=== PATIENT | female | born 1985 | race Two or more races ===

== ENCOUNTER → 2017-01-26 13:34 | Outpatient (CLI) | payer MEDICAID | END | disposition home or self-care (01) | LOC: D.CT 13:30 | DX: R16.0 Hepatomegaly, not elsewhere classified (principal) ==

== ENCOUNTER → 2017-05-19 10:38 | Outpatient (CLI) | payer MEDICAID | END | disposition home or self-care (01) | LOC: D.MRI 05-14 08:30 | DX: R16.0 Hepatomegaly, not elsewhere classified (principal) ==

== ENCOUNTER → 2018-04-30 10:04 | Outpatient (CLI) | payer OTHER | END | disposition home or self-care (01) | LOC: D.MRI 10:00 | DX: K76.9 Liver disease, unspecified (principal) ==

== ENCOUNTER 2019-03-31 06:42 | Day surgery (SDC) | payer MEDICAID ==
[~2019-03-31] VITALS: Ht 162.6 cm; Wt 72.6 kg
[2019-03-31 07:17] LABS: HCG URINE NEGATIVE (NEGATIVE)
[2019-03-31 07:19] LABS: HEMATOCRIT 40.3 % (36.0-48.0); HEMOGLOBIN 13.2 g/dL (12-16); MCH 28.8 pg (26.0-34.0); MCHC 32.8 g/dL (31.0-37.0); MEAN PLATELET VOLUME 10.4 fL (7.4-10.4); RBC 4.58 10x6/uL (4.00-5.40); RDW 12.7 % (11.5-14.5); WBC 6.2 10x3/uL (4.8-10.8)
[2019-03-31 07:28] VITALS: BP 113/43; Ht 162.6 cm; Wt 72.6 kg
--- NOTE | 2019-03-31 10:46 | NUR ---
1040-DISCHARGE CRITERIA MET.AMBULATED TO RESTROOM AND URINATED WITHOUT COMPLICATIONS. REMOVED IV FROM LEFT ARM WITH CATH INTACT,DISPOSED INTO SHARPS,COVERED SITE WITH BANDAID. REVIEWED POST OPERATIVE INSTRUCTIONS WITH PT.VERBALIZED UNDERSTANDING. AWAITING ON FATHER TO PICK HER UP
--- NOTE | 2019-03-31 11:00 | NUR ---
1100-ESCORTED OUT VIA W/C WITH FATHER AWAITING TO DRIVE HOME.STABLE CONDITON WITHOUT QUESTIONS OR CONCERNS
--- NOTE | 2019-03-31 11:02 | OP ---
PATIENT NAME: TIFFANY MORSE MEDICAL RECORD: [id number] :81 LOCATION:D.OPS ADMISSION DATE: SURGEON: TONG YOUNG MD DATE OF OPERATION: 03/31/2019 SURGEON: Tong Young MD ANESTHESIA: TIVA by Miky Thakkar CRNA DIAGNOSIS: Interstitial cystitis. PROCEDURES: Cystoscopy, hydrodistention of bladder, intravesical Rimso instillation. FINDINGS: Inflamed bladder with no bladder tumors. Single ureteral orifices bilaterally. BLOOD LOSS: None. CLINICAL HISTORY: This is a 33-year-old female, G3, P3, A0, who was originally from [facility]. She has a chief complaint of urinary frequency, nocturia times 2-3 and urinary tract infection type symptoms. This includes urgency, suprapubic pain and dyspareunia. She has interstitial cystitis type symptoms. We are performing cystoscopy today. If bladder inflammation is seen, then we will proceed to treatment with hydrodistention and intravesical Rimso. She is not allergic to any medications. 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 DESCRIPTION OF PROCEDURE: The patient was given IV sedation. She was then placed into lithotomy position and prepped and draped. The 21-[place] cystoscope was introduced. Bladder findings as outlined above. I distended the bladder to at least 600 mL for 1-2 minutes. The bladder was then emptied. The scope was removed. A red rubber catheter was introduced into the bladder and through the lumen of the catheter, 50 mL of intravesical Rimso solution was instilled into the bladder. Once the solution was in the bladder, the catheter was removed. The patient will hold the solution in for 15 minutes and then void it out. I will see her in followup in 2 weeks' time. TRANSINT:[id number] Voice Confirmation ID: [id number] DOCUMENT ID: [id number] TONG YOUNG MD at 1102 CC: [id number] DICTATION DATE: 03/31/19 1002 ELECTROPLATING WORKER: 03/31/19 1012 [facility] 03/31/19 [facility] [address] [place] [address]
== END 2019-03-31 11:00 | disposition home or self-care (01) ==
LOC: D.OPS 06:42 → D.PAN 09:00 → D.OPS 09:00 → D.PAN 09:30 → D.OPS 09:30 → D.PAN 12:00 → D.OPS 13:15
PROVIDERS: Anesthesiology; ATTEND Urology
DX: N30.10 Interstitial cystitis (chronic) without hematuria (principal)

== ENCOUNTER → 2019-06-14 15:42 | Outpatient (CLI) | payer OTHER ==
[2019-03-31 07:28] VITALS: BMI 27.5
== END | disposition home or self-care (01) ==
LOC: D.LABREF 15:42
PROVIDERS: ATTEND Urology
DX: R82.90 Unspecified abnormal findings in urine (principal); R31.9 Hematuria, unspecified